=== PATIENT | female | born 1985 | race Caucasian/White ===

== ENCOUNTER 2017-05-30 00:09 | Inpatient (IN) | payer OTHER ==
[2017-05-30] MEDS ORDERED: fentaNYL PF VIAL 100 MCG/2 ML VIAL IV (01:00)
[2017-05-30] MEDS: IV NORMAL SALINE 1000ML BAG 1,000 ML IV ×4 (01:16→21:05)
[2017-05-30] MEDS: diphenhydrAMINE HCL 25 MG CAPSULE PO (01:28)
[2017-05-30] MEDS: PROCHLORPERAZINE 10 MG/2 ML VIAL. IV ×3 (01:29→16:07)
[2017-05-30] MEDS: MORPHINE SULFATE 4 MG/ML DISP.SYRIN. IV ×4 (01:43→16:08)
[2017-05-30 03:43] LABS: BILIRUBIN,URINE NEGATIVE (NEG); CLARITY,URINE CLEAR; COLOR,URINE AMBER; GLUCOSE,URINE NEGATIVE (NEG); NITRITE,URINE NEGATIVE (NEG); PH,URINE 6.5; PROTEIN,URINE 30 mg/dL (NEG-TRACE)
[2017-05-30 04:02] LABS: BACTERIA,URINE MODERATE /HPF (0-FEW); RBC,URINE TNTC /HPF (0-2); SQUAMOUS EPITHELIAL CELL,UR FEW /LPF; WBC,URINE TNTC /HPF (0-4)
[2017-05-30] MEDS: ACETAMINOPHEN 325 MG TABLET. PO ×3 (04:10→17:58)
[2017-05-30 05:25] LABS: INR 1.1 (0.8-1.1); PROTHROMBIN TIME PATIENT 13.5 SEC (11.7-14.0)
[2017-05-30 05:26] LABS: BASO % 0 % (0-3); EOS % 0 % (0-3); HEMATOCRIT 34.6 % (36.0-47.0); HEMOGLOBIN 11.3 g/dL (12.0-15.5); LYMPH % 4 % (24-48); MEAN CORPUSCULAR HEMOGLOBIN 30 pg (25-35); MEAN CORPUSCULAR HGB CONC 33 g/dL (31-37); MEAN CORPUSCULAR VOLUME 91 fL (79-100); MONO % 8 % (0-9); NEUT # 20.4 x10^3uL (1.8-7.7); NEUT % 87 % (31-73); PLATELET COUNT 230 x10^3/uL (140-400); RED BLOOD COUNT 3.81 x10^6/uL (3.50-5.40); RED CELL DISTRIBUTION WIDTH 14.1 % (11.5-14.5); WHITE BLOOD COUNT 23.3 x10^3/uL (4.0-11.0)
[2017-05-30 05:38] LABS: ANION GAP 11 (6-14); BLOOD UREA NITROGEN 8 mg/dL (7-20); CALCIUM 7.7 mg/dL (8.5-10.1); CARBON DIOXIDE 25 mmol/L (21-32); CHLORIDE 102 mmol/L (98-107); CREATININE 0.6 mg/dL (0.6-1.0); GFR 115.9; GLUCOSE 122 mg/dL (70-99); SODIUM 138 mmol/L (136-145)
[2017-05-30 05:39] LABS: ADD MAN DIFF? YES
[2017-05-30 05:41] LABS: POTASSIUM 2.8 mmol/L (3.5-5.1)
[2017-05-30] MEDS ORDERED: POTASSIUM CHLORIDE 20 MEQ TABLET.ER. PO (06:45)
[2017-05-30] MEDS: LACTOBACILLUS RHAMNOSUS GG 1 CAPSULE. PO ×2 (08:14→21:05)
[2017-05-30] MEDS: POTASSIUM CHLORIDE 20 MEQ TABLET.ER. PO ×4 (08:14→18:00)
[2017-05-30 11:50] LABS: % BANDS 36 % (0-9); % LYMPHS 6 % (24-48); % MONOS 5 % (0-10); % SEGS 53 % (35-66); PLT ESTIMATE ADEQUATE (ADEQUATE)
[2017-05-30] MEDS ORDERED: KETOROLAC 15 MG/ML VIAL. IV (12:30)
[2017-05-30] MEDS: CIPROFLOXACIN HCL 250 MG TABLET. PO (12:53)
[2017-05-30] MEDS: VANCOMYCIN 1.25 GM in IV NORMAL SALINE 250ML 250 ML IV (16:35)
[2017-05-30] MEDS ORDERED: PIPERACILLIN/TAZOBACTAM 2.25 GM in IV DEXTROSE 5% 50 ML IV (18:00)
[2017-05-30] MEDS: KETOROLAC 15 MG/ML VIAL. IV ×2 (18:25→23:25)
[2017-05-30] MEDS: PIPERACILLIN/TAZO IV Push 3.375 GM VIAL. IVP ×2 (18:25→23:25)
[2017-05-30] MEDS ORDERED: cefTRIAXone IV Push 2 GM VIAL. IVP (20:00)
[2017-05-30] MEDS ORDERED: cefTRIAXone SODIUM 2 GM in IV DEXTROSE 5% 100 ML IV (20:00)
[2017-05-30] MEDS: ONDANSETRON PF 4 MG/2 ML VIAL. IV (21:05)
[2017-05-30] MEDS: HYDROcodone/APAP 5/325MG 1 TAB TABLET PO (21:05)
[2017-05-30] MEDS: ZOLPIDEM 5 MG TABLET. PO (21:18)
[2017-05-31] MEDS: IV NORMAL SALINE 1000ML BAG 1,000 ML IV ×4 (04:06→21:41)
[2017-05-31] MEDS: MORPHINE SULFATE 4 MG/ML DISP.SYRIN. IV ×5 (04:30→22:44)
[2017-05-31 04:50] LABS: ADD MAN DIFF? NO
[2017-05-31 04:55] LABS: BASO % 0 % (0-3); EOS % 0 % (0-3); HEMATOCRIT 34.8 % (36.0-47.0); HEMOGLOBIN 11.5 g/dL (12.0-15.5); LYMPH # 1.2 x10^3/uL (1.0-4.8); LYMPH % 6 % (24-48); MEAN CORPUSCULAR HEMOGLOBIN 30 pg (25-35); MEAN CORPUSCULAR HGB CONC 33 g/dL (31-37); MEAN CORPUSCULAR VOLUME 91 fL (79-100); MONO # 1.3 x10^3/uL (0.0-1.1); MONO % 7 % (0-9); NEUT # 17.2 x10^3uL (1.8-7.7); NEUT % 87 % (31-73); PLATELET COUNT 231 x10^3/uL (140-400); RED BLOOD COUNT 3.82 x10^6/uL (3.50-5.40); RED CELL DISTRIBUTION WIDTH 14.5 % (11.5-14.5); WHITE BLOOD COUNT 19.8 x10^3/uL (4.0-11.0)
[2017-05-31 05:22] LABS: ANION GAP 9 (6-14); BLOOD UREA NITROGEN 8 mg/dL (7-20); CALCIUM 7.9 mg/dL (8.5-10.1); CARBON DIOXIDE 24 mmol/L (21-32); CHLORIDE 106 mmol/L (98-107); CREATININE 0.6 mg/dL (0.6-1.0); GFR 115.9; GLUCOSE 104 mg/dL (70-99); POTASSIUM 3.6 mmol/L (3.5-5.1); SODIUM 139 mmol/L (136-145)
[2017-05-31] MEDS: KETOROLAC 15 MG/ML VIAL. IV ×4 (05:33→23:09)
[2017-05-31] MEDS: PIPERACILLIN/TAZO IV Push 3.375 GM VIAL. IVP ×4 (05:36→23:09)
[2017-05-31] MEDS: LACTOBACILLUS RHAMNOSUS GG 1 CAPSULE. PO ×2 (08:29→21:13)
[2017-05-31] MEDS: ACETAMINOPHEN 325 MG TABLET. PO (11:32)
[2017-05-31] MEDS: PROCHLORPERAZINE 10 MG/2 ML VIAL. IV ×2 (15:14→22:44)
[2017-05-31] MEDS: ONDANSETRON PF 4 MG/2 ML VIAL. IV (18:22)
[2017-05-31] MEDS: POTASSIUM CHLORIDE 20 MEQ TABLET.ER. PO (21:13)
[2017-05-31] MEDS: diphenhydrAMINE HCL 25 MG CAPSULE PO (21:13)
[2017-06-01] MEDS: PIPERACILLIN/TAZO IV Push 3.375 GM VIAL. IVP ×3 (05:25→12:00)
[2017-06-01] MEDS: KETOROLAC 15 MG/ML VIAL. IV ×4 (05:26→15:34)
[2017-06-01] MEDS: IV NORMAL SALINE 1000ML BAG 1,000 ML IV ×2 (05:28→14:23)
[2017-06-01 05:46] LABS: ADD MAN DIFF? NO
[2017-06-01 05:59] LABS: BASO % 0 % (0-3); EOS # 0.1 x10^3/uL (0.0-0.7); EOS % 1 % (0-3); HEMATOCRIT 31.7 % (36.0-47.0); HEMOGLOBIN 10.4 g/dL (12.0-15.5); LYMPH # 1.3 x10^3/uL (1.0-4.8); LYMPH % 9 % (24-48); MEAN CORPUSCULAR HEMOGLOBIN 30 pg (25-35); MEAN CORPUSCULAR HGB CONC 33 g/dL (31-37); MEAN CORPUSCULAR VOLUME 91 fL (79-100); MONO # 0.9 x10^3/uL (0.0-1.1); MONO % 6 % (0-9); NEUT # 13.1 x10^3uL (1.8-7.7); NEUT % 85 % (31-73); PLATELET COUNT 238 x10^3/uL (140-400); RED BLOOD COUNT 3.48 x10^6/uL (3.50-5.40); RED CELL DISTRIBUTION WIDTH 14.4 % (11.5-14.5); WHITE BLOOD COUNT 15.4 x10^3/uL (4.0-11.0)
[2017-06-01 06:21] LABS: BLOOD UREA NITROGEN 7 mg/dL (7-20); CALCIUM 7.7 mg/dL (8.5-10.1); CARBON DIOXIDE 24 mmol/L (21-32); CHLORIDE 107 mmol/L (98-107); CREATININE 0.5 mg/dL (0.6-1.0); GLUCOSE 93 mg/dL (70-99); POTASSIUM 3.6 mmol/L (3.5-5.1)
[2017-06-01 06:33] LABS: ANION GAP 9 (6-14); SODIUM 140 mmol/L (136-145)
[2017-06-01 08:59] LABS: INFLUENZA A PATIENT NEGATIVE (NEGATIVE); INFLUENZA B PATIENT NEGATIVE (NEGATIVE); OBC FLU VALID
[2017-06-01] MEDS: POTASSIUM CHLORIDE 20 MEQ TABLET.ER. PO ×2 (09:34→20:49)
[2017-06-01] MEDS: LACTOBACILLUS RHAMNOSUS GG 1 CAPSULE. PO ×2 (09:34→20:49)
[2017-06-01] MEDS: ACETAMINOPHEN 325 MG TABLET. PO (09:34)
[2017-06-01] MEDS: CIPROFLOXACIN HCL 250 MG TABLET. PO ×2 (10:25→20:48)
[2017-06-01] MEDS: HYDROcodone/APAP 5/325MG 1 TAB TABLET PO ×2 (17:18→20:49)
[2017-06-01] MEDS ORDERED: PIPERACILLIN/TAZOBACTAM 3.375 GM in IV NORMAL SALINE 50ML 50 ML IV (18:00)
[2017-06-02 07:59] LABS: ADD MAN DIFF? NO
[2017-06-02 08:08] LABS: BASO # 0.1 x10^3/uL (0.0-0.2); BASO % 0 % (0-3); EOS # 0.2 x10^3/uL (0.0-0.7); EOS % 1 % (0-3); HEMATOCRIT 36.4 % (36.0-47.0); HEMOGLOBIN 11.8 g/dL (12.0-15.5); LYMPH # 1.8 x10^3/uL (1.0-4.8); LYMPH % 14 % (24-48); MEAN CORPUSCULAR HEMOGLOBIN 29 pg (25-35); MEAN CORPUSCULAR HGB CONC 32 g/dL (31-37); MEAN CORPUSCULAR VOLUME 91 fL (79-100); MONO # 0.9 x10^3/uL (0.0-1.1); MONO % 7 % (0-9); NEUT # 10.2 x10^3uL (1.8-7.7); NEUT % 78 % (31-73); PLATELET COUNT 389 x10^3/uL (140-400); RED BLOOD COUNT 4.02 x10^6/uL (3.50-5.40); RED CELL DISTRIBUTION WIDTH 14.3 % (11.5-14.5)
[2017-06-02 08:20] LABS: ANION GAP 10 (6-14); BLOOD UREA NITROGEN 4 mg/dL (7-20); CALCIUM 8.3 mg/dL (8.5-10.1); CARBON DIOXIDE 26 mmol/L (21-32); CHLORIDE 105 mmol/L (98-107); CREATININE 0.5 mg/dL (0.6-1.0); GLUCOSE 111 mg/dL (70-99); POTASSIUM 3.9 mmol/L (3.5-5.1); SODIUM 141 mmol/L (136-145)
[2017-06-02] MEDS: ACETAMINOPHEN 325 MG TABLET. PO (08:27)
[2017-06-02] MEDS: LACTOBACILLUS RHAMNOSUS GG 1 CAPSULE. PO (08:28)
[2017-06-02] MEDS: POTASSIUM CHLORIDE 20 MEQ TABLET.ER. PO (08:28)
[2017-06-02] MEDS: CIPROFLOXACIN HCL 250 MG TABLET. PO (08:28)
== END 2017-06-02 11:06 | disposition home or self-care (01) | DRG 862 ==
LOC: 5 NORTH 00:09
DX: T81.4XXA Infection following a procedure, initial encounter (principal); A41.9 Sepsis, unspecified organism; N10 Acute pyelonephritis; N39.0 Urinary tract infection, site not specified; N20.0 Calculus of kidney; Z87.442 Personal history of urinary calculi
CPT/HCPCS: 36415; 80048; 81001; 83605; 85007; 85025; 85610; 87040; 87086; 87804; 87804-59; J0780; J1885; J2270; J2405; J2543; J3370; J7030; J7050; Q0163